=== PATIENT | female | born 1960 | race Caucasian/White ===

== ENCOUNTER 2019-12-27 14:35 | Outpatient (CLI) | payer OTHER, SELFPAY ==
--- NOTE | ~2019-12-27 | XR_ITS ---
EXAMINATION: XR knee LT 3V EXAM DATE: 12/27/2019 15:42 INDICATION: No known recent injury provided at this time. Pain of the left knee. TECHNIQUE: Three projections of the left knee. There is no prior study for comparison. FINDINGS: No evidence osteochondral defect or joint body in the left knee joint. There are no acute fractures or dislocations identified. There is no subcutaneous gas. There is small joint effusion. There are no radiopaque foreign bodies. IMPRESSION: Small left knee joint effusion. Reviewed, dictated and finalized at location A. E LEVER OPERATOR
--- NOTE | ~2019-12-27 | XR_ITS ---
EXAMINATION: XR hand LT 2V EXAM DATE: 12/27/2019 15:42 INDICATION: No known recent injury provided at this time. Pain of the left hand. TECHNIQUE: Frontal and lateral projections of the left hand. There is no prior study for comparison . FINDINGS: The joint spaces are uniform. There are no acute fractures or dislocations identified. Th ere is no subcutaneous gas. The soft tissue is unremarkable. There are no radiopaque foreign gunjan s. There are no bony erosions identified. IMPRESSION: 1. Unremarkable XR hand LT 2V exam. Reviewed, dictated and finalized at location A. TITATIVE DEVELOPER
--- NOTE | ~2019-12-27 | XR_ITS ---
EXAMINATION: XR_CERV2-3V_CR EXAM DATE: 12/27/2019 15:41 INDICATION: Chronic neck pain. TECHNIQUE: Cervical spine frontal, lateral, open-mouth odontoid projections. There is no prior stud y for comparison. FINDINGS: There is mild cervical disc disease from C3-C6. There is mild to moderate cervical arthrop athy. There is no evidence of acute cervical fracture. The odontoid process is intact. Pre-dens spa ce is normal. Prevertebral soft tissue is normal. There are no soft tissue abnormalities identified . The vertebral bodies are aligned. Vertebral body and disc heights are well-maintained. IMPRESSION: 1. Mild to moderate cervical arthropathy, mild disc disease. Reviewed, dictated and finalized at location A. ING RULES PRINTING MACHINE OPERATOR
--- NOTE | ~2019-12-27 | XR_ITS ---
EXAMINATION: XR foot LT min 3V EXAM DATE: 12/27/2019 15:41 INDICATION: Polyarthralgia, bilateral foot pain. TECHNIQUE: Left foot dorsoplantar, lateral and oblique projections obtained and reviewed. There is n o prior study for comparison. FINDINGS: Left metatarsal bones unremarkable. There is mild left first metatarsophalangeal joint pr imary osteoarthritis. There are no acute fractures or dislocations identified. There is no subcutane ous gas. The soft tissue is unremarkable. There are no radiopaque foreign bodies. There are no [place] erosions identified. IMPRESSION: Mild left first MTP osteoarthritis. Reviewed, dictated and finalized at location A. HETIC GEM PRESS OPERATOR
--- NOTE | ~2019-12-27 | XR_ITS ---
EXAMINATION: XR foot RT min 3V EXAM DATE: 12/27/2019 15:41 INDICATION: Polyarthralgia, bilateral foot pain. No known recent injury. TECHNIQUE: Right foot dorsoplantar, lateral and oblique projections obtained and reviewed. There is no prior study for comparison. FINDINGS: Right metatarsal bones unremarkable. Joint spaces are unremarkable. There are no acute fr actures or dislocations identified. There is no subcutaneous gas. The soft tissue is unremarkable. There are no radiopaque foreign bodies. There are no bony erosions identified. IMPRESSION: 1. Unremarkable XR foot RT min 3V exam. Reviewed, dictated and finalized at location A. NE ELECTRONICS TECHNICIAN
--- NOTE | ~2019-12-27 | XR_ITS ---
EXAMINATION: XR hand RT 2V EXAM DATE: 12/27/2019 15:42 INDICATION: No known recent injury provided at this time. Pain of the right hand. TECHNIQUE: Frontal and lateral projections of the right hand. There is no prior study for compariso n. FINDINGS: There is mild right first interphalangeal joint primary osteoarthritis. There are no bony e rosions identified. There are no acute fractures or dislocations identified. There is no subcutaneou s gas. The soft tissue is unremarkable. There are no radiopaque foreign bodies. IMPRESSION: Mild right first interphalangeal joint osteoarthritis. Reviewed, dictated and finalized at location A. CTOR OF ENVIRONMENTAL SERVICES
--- NOTE | ~2019-12-27 | XR_ITS ---
EXAMINATION: XR chest 2V EXAM DATE: 12/27/2019 15:42 INDICATION: Polyarthralgia, TB screening. TECHNIQUE: Frontal and lateral projections of the chest obtained and reviewed. There is no prior dequan dy for comparison. FINDINGS: Mild hyperinflation. The lungs are clear. There are no pleural effusions. The cardiomedi astinal silhouette is within normal limits. There is no pneumothorax suspected. The bones and soft tissues are unremarkable. IMPRESSION: No acute cardiopulmonary findings. Reviewed, dictated and finalized at location A. E MANAGER
== END 2019-12-27 14:36 | disposition home or self-care (01) ==
PROVIDERS: PCP Internal Medicine; Visit Provider Physician Assistant
DX: Z11.1 Encounter for screening for respiratory tuberculosis (principal); M25.462 Effusion, left knee; M19.041 Primary osteoarthritis, right hand; M19.072 Primary osteoarthritis, left ankle and foot; M50.30 Other cervical disc degeneration, unspecified cervical region
CPT/HCPCS: 71046; 72040; 73120; 73562; 73630

== ENCOUNTER → 2019-12-29 15:13 | Outpatient (CLI) | payer OTHER, SELFPAY ==
--- NOTE | ~2019-12-29 | US_ITS ---
EXAMINATION: US venous doppler [facility] EXAM DATE: 12/29/2019 15:59 INDICATION: Left leg pain. TECHNIQUE: Multiple grayscale, color flow and Doppler images of the left lower extremity deep venous system were obtained and reviewed. There is no prior study for comparison. FINDINGS: The left common femoral, femoral and profunda veins demonstrate normal color flow, respirat ory variation, augmentation and compressibility. Compressibility, color flow confirmed within the le ft popliteal, posterior tibial, peroneal, and greater saphenous veins. Scanning obtained in calf sheri on demonstrates a long large heterogeneous echogenicity region without vascularity, most likely an in tramuscular hematoma. Was there any history of known trauma? IMPRESSION: 1. No left lower extremity deep venous thrombosis. 2. Heterogeneous intramuscular left calf region most likely hematoma. Consider one-month follow-up u ltrasound. Reviewed, dictated and finalized at location A. ECT GEOPHYSICIST IMPRESSION: 1. No left lower extremity deep venous thrombosis. 2. Heterogeneous intramuscular left calf region most likely hematoma. Consider one-month follow-up ultrasound.
== END ==
PROVIDERS: PCP Internal Medicine; Visit Provider Physician Assistant
DX: M79.605 Pain in left leg (principal)
CPT/HCPCS: 93971

== ENCOUNTER → 2021-04-15 02:03 | Outpatient (CLI) | payer OTHER, SELFPAY ==
[2021-04-17 12:56] LABS: SARS-CoV-2 RNA PCR Negative
== END ==
PROVIDERS: PCP Internal Medicine; Visit Provider Internal Medicine Gastroenterology
DX: Z01.812 Encounter for preprocedural laboratory examination (principal); Z20.822 Contact with and (suspected) exposure to COVID-19
CPT/HCPCS: C9803; U0003; U0005

== ENCOUNTER 2021-04-18 00:21 | Day surgery (SDC) | payer OTHER, SELFPAY ==
[2021-04-08 14:19] VITALS: BMI 22.5
[2021-04-18 06:56] VITALS: BP 128/72; PULSE 74; RESP 20; TEMP 36.2; O2SAT 98
[2021-04-18] MEDS: LACTATED RINGERS 1,000 ML 150 ML IV CONT (07:10)
--- NOTE | 2021-04-18 07:45 | PM.HPGS ---
History of Present Illness History of Present Illness Consent: Risks, benefits, and alternatives have been discussed and questions answered. Patient agrees to proceed with procedure. Chief complaint: hx of colon polyps Narrative: Corina Saldivar is a 60 year old female who is here for colon cancer screening. She has a family history of colon cancer. She also has had a polyp removed 7 years ago Review of Systems Review of Systems: All systems reviewed & are unremarkable except as noted in HPI and below PMFSH Past Medical History Medical History (Updated 04/18/21 @ 07:51 by Clarence Otto MD) Gastroesophageal reflux disease Mixed hyperlipidemia SHIRIN (obstructive sleep apnea) Rheumatoid arthritis Social History Social History Smoking packs per day: 0.5 Smoking cigarettes per day: 10.0 Years smoked: 30 Smoking pack-years: 15.00 Smoking status: Current every day smoker Tobacco type: cigarettes Second hand tobacco smoke exposure: No Smoking end date: 11/23/09 Alcohol intake: never Spiritual care concerns: No Meds Home Medications and Allergies Home Medications Medication Instructions Recorded Confirmed Type albuterol sulfate 90 mcg/actuation 1 puff INHALATION Q4H PRN 12/06/19 04/08/21 History aerosol inhaler multivit with min-folic 1 tablet PO DAILY 12/06/19 04/08/21 History acid-lutein 0.4 mg-250 mcg tablet omega-3 fatty acids 500 mg capsule 500 mg PO DAILY 12/06/19 04/08/21 History adalimumab 40 mg/0.4 mL 40 mg SUB-Q .BiWeekly #2 each 06/19/20 04/08/21 Rx subcutaneous syringe kit rosuvastatin 5 mg tablet 5 mg PO .q48 #45 ea 03/07/21 04/08/21 Rx Allergies Allergy/AdvReac Type Severity Reaction Status Date / Time POSSIBLE SOLARCAINE Allergy Severe Sick Uncoded 04/18/21 06:55 Vital Signs Vital Signs - 24 hr 04/18/21 06:56 Temperature 36.2 C L Pulse Rate 74 Respiratory Rate 20 Blood Pressure 128/72 Pulse Oximetry 98 Exam Const: General: alert Orientation/consciousness: patient oriented x3 Resp: Auscultation: clear to auscultation bilaterally Cardio: Rhythm: regular rhythm GI: GI Palp: Yes Soft to palpation and No Tenderness to palpation present (GI) Neuro: General: patient oriented x3 Assessment and Plan Assessment and plan (1) Colon cancer screening: Code(s): Z12.11 - Encounter for screening for malignant neoplasm of colon Status: Acute Assessment and Plan: Colonoscopy with possible biopsy or polypectomy or cautery or injection of substances.
--- NOTE | 2021-04-18 07:51 | WPDANESEPPF ---
Anes - Initial Pre Proc Eval Procedure: Operation Date: 04/18/21 08:00 Proposed Procedures p Screening Colonoscopy - Clarence Otto MD Date/Time: 04/18/21 07:51 Surgeon: Clarence Otto MD Pre Op Diagnosis: hx of colon polyps Patient Data Age: 60 Gender: F Height: 5 ft 3.75 in Weight: 60.9 kg Last Vital Signs Temp 97.2 F L 04/18/21 06:56 Pulse 74 04/18/21 06:56 Resp 20 04/18/21 06:56 BP 128/72 04/18/21 06:56 Pulse Ox 98 04/18/21 06:56 Allergies Allergy/AdvReac Type Severity Reaction Status Date / Time POSSIBLE SOLARCAINE Allergy Severe Sick Uncoded 04/18/21 06:55 Home Medications Medication Instructions Recorded Confirmed Type albuterol sulfate 90 mcg/actuation 1 puff INHALATION Q4H PRN 12/06/19 04/08/21 History aerosol inhaler multivit with min-folic 1 tablet PO DAILY 12/06/19 04/08/21 History acid-lutein 0.4 mg-250 mcg tablet omega-3 fatty acids 500 mg capsule 500 mg PO DAILY 12/06/19 04/08/21 History adalimumab 40 mg/0.4 mL 40 mg SUB-Q .BiWeekly #2 each 06/19/20 04/08/21 Rx subcutaneous syringe kit rosuvastatin 5 mg tablet 5 mg PO .q48 #45 ea 03/07/21 04/08/21 Rx Patient hx anesthesia problems: none Family hx anesthesia problems: none PMFSH Past Medical History Medical History (Updated 04/18/21 @ 07:51 by Clarence Otto MD) Gastroesophageal reflux disease Mixed hyperlipidemia SHIRIN (obstructive sleep apnea) Rheumatoid arthritis Social History Social History Smoking packs per day: 0.5 Smoking cigarettes per day: 10.0 Years smoked: 30 Smoking pack-years: 15.00 Smoking status: Current every day smoker Tobacco type: cigarettes Second hand tobacco smoke exposure: No Smoking end date: 11/23/09 Alcohol intake: never Spiritual care concerns: No Anes - Eval Final PreProcedure Day of Procedure 04/18/21 07:51 Patient weight: normal Heart: regular rate and rhythm Lungs: clear to auscultation Airway: Mallampati scale class II Neurological: alert and oriented Last oral intake: >/= 8 hours ASA classification: III Emergent: no Anesthetic plan: proceed Anesthesia type and monitoring: general GIVS and standard monitoring Informed Consent: The patient's anesthetic plan and its attendant risks and benefits were discussed with the patient/family/POA. Questions were solicited and answers provided to the satisfaction of the patient/family/POA.
[2021-04-18 08:22] VITALS: BP 106/56; PULSE 64; RESP 18; O2SAT 98
[2021-04-18 08:32] VITALS: BP 112/73; PULSE 64; RESP 20; O2SAT 100
[2021-04-18 08:42] VITALS: BP 126/79; PULSE 58; RESP 19; O2SAT 100
== END 2021-04-18 09:18 | disposition home or self-care (01) ==
PROVIDERS: PCP Internal Medicine; Visit Provider Internal Medicine Gastroenterology
PROC: 0DJD8ZZ Inspection of Lower Intestinal Tract, Via Natural or Artificial Opening Endoscopic (ICD-10-PCS; CPT 45378; principal; 2021-04-18 08:00)
DX: Z12.11 Encounter for screening for malignant neoplasm of colon (principal); D12.5 Benign neoplasm of sigmoid colon; K57.30 Diverticulosis of large intestine without perforation or abscess without bleeding; K21.9 Gastro-esophageal reflux disease without esophagitis; E78.00 Pure hypercholesterolemia, unspecified; M06.9 Rheumatoid arthritis, unspecified; Z87.891 Personal history of nicotine dependence; G47.33 Obstructive sleep apnea (adult) (pediatric); Z86.010 Personal history of colon polyps
CPT/HCPCS: 45380; 88305; J2704; J7120

== ENCOUNTER 2024-07-18 10:59 | Outpatient (CLI) | payer OTHER, SELFPAY | END 2024-07-18 11:00 | disposition home or self-care (01) | LOC: ANHAUDIO 10:59 | PROVIDERS: PCP Family Medicine; Visit Provider Nurse Practitioner Family | DX: H93.19 Tinnitus, unspecified ear (principal) | CPT/HCPCS: 92567 ==

== ENCOUNTER 2024-07-29 07:57 | Outpatient (CLI) | payer OTHER, SELFPAY | END 2024-07-29 07:58 | disposition home or self-care (01) | LOC: ANHAUDIO 07:57 | PROVIDERS: PCP Family Medicine; Visit Provider Otolaryngology | DX: H61.22 Impacted cerumen, left ear (principal); H93.12 Tinnitus, left ear; H90.3 Sensorineural hearing loss, bilateral | CPT/HCPCS: 92552; 92556; 92567 ==

== ENCOUNTER 2025-04-26 11:28 | Outpatient (CLI) | payer OTHER, SELFPAY ==
--- NOTE | ~2025-04-26 | US_ITS ---
Thyroid ultrasound. Clinical History: Disorder of thyroid gland Findings: Real-time sonography of the thyroid gland was performed. The right lobe measures 3.3 x 1.0 x 1.1 cm. The left lobe measures 3.1 x 0.9 x 1.4 cm. The isthmus is 3 mm in AP diameter. There is a 6 mm nearly isoechoic nodule at the anterior aspect of the left midpole. Impression: 6 mm left thyroid nodule. No distinct follow-up required.. Reviewed, dictated and finalized at location M. Impression: 6 mm left thyroid nodule. No distinct follow-up required..
== END 2025-04-26 11:29 | disposition home or self-care (01) ==
LOC: GOSHIMG 11:29
PROVIDERS: PCP Family Medicine; Visit Provider Otolaryngology
DX: E04.1 Nontoxic single thyroid nodule (principal)
CPT/HCPCS: 76536